=== PATIENT | female | born 1960 | race Caucasian/White ===

== ENCOUNTER 2025-07-22 10:35 | Emergency (ER) | payer BC, SELFPAY ==
[2025-07-22 10:40] VITALS: BP 125/75
[2025-07-22 11:25] VITALS: BP 102/70
--- NOTE | 2025-07-22 11:26 | ED.GENMED ---
History of Present Illness
General
Chief Complaint: Breathing Problem
Time Seen by Provider: 07/22/25 11:26
Nursing documentation reviewed up to this point in time: agreed with
History of Present Illness
History of Present Illness:
64-year-old female presents to the ER for evaluation of cough and congestion since Monday night. Patient shared thanksgiving with a large group. She has not taken on a antibiotics recently. She does not use any inhalers on a daily basis. She
does have a history of lung cancer and is on immunotherapy. She reports poor appetite. No vomiting. She has been feeling generally weak but no syncope.
Past History
Past History
ED Past Medical History: COPD and Hypothyroidism
ED Past Surgical History: Orthopedic (Low back surgery), Tonsilectomy and Other (Breast implants, right toe neuroma removed, parathyroidectomy)
Social History
Tobacco: Smoker
Alcohol: None
Drug: None
Personal: Single
Living: with family
Employment: Employed
Family History
Family History: Other (Noncontributory)
Review of Systems
Review of Systems
Allergies reviewed?: Yes
Phy Exam
Physical Exam
Physical Exam:
Patient is awake, alert, appears in no acute distress, head is NCAT, PERRL, EOMI mucous membranes tacky, conjunctiva pink, heart regular rate and rhythm without murmurs or ectopy, lungs are without increased work of breathing, diffuse wheezing
heard, no JVD, abdomen is soft and nontender on palpation, extremities without edema, GCS is 15
Scores
Heart Failure Risk
Heart Failure Risk Score: Not Applicable
Course
Orders/Labs/Results
Orders:
Orders
07/22/25 11:19
Electrocardiogram (*1) Urgent
Reason for Study: Shortness of Breath
EKG- Treatment ONCE
07/22/25 11:34
0.9% Sodium Chloride 1000 ml [Nss] 1,000 ml IV BOLUS
Albuterol Sulfate [Ventolin Nebules] 10 mg INH R NOW STA
Ipratropium/Albuterol Sulfate [Duoneb] 3 ml INH R NOW STA
CR Chest - 2 Views Urgent
Comment:
Reason For Exam: cough
Pulse Ox/cont/shift [RESP] Stat
Quantity: 1
07/22/25 11:54
Basic Metabolic Panel Urgent
COVID-19 Antigen Urgent
Source: Nasal Swab
Complete Blood Count/With Diff Urgent
Influenza A+B Rapid Molecular Urgent
[facility]SON Source: Nasal Swab
Specimen Description:
07/22/25 14:25
Azithromycin [Zithromax] 500 mg PO NOW STA
Prednisone [Deltasone] 50 mg PO NOW STA
07/22/25 14:37
Albuterol [ProAIR HFA INHALER] 2 puff INH R NOW STA
Abnormal Lab Results
07/22/25
11:54
MCHC 32.9 L g/dL
(33.0-37.0)
RDW 15.0 H %
(11.5-14.5)
Plt Count 63 L 10^3/uL
(130-400)
MPV 10.9 H fL
(7.4-10.4)
Absolute Lymphs (auto) 0.8 L 10^3/uL
(1.2-3.4)
Neutrophils % 80.9 H %
(42.2-75.2)
Lymphocytes % 10.3 L %
(20.5-51.1)
Glucose 100 H mg/dl
(70-99)
07/22/25 11:54
07/22/25 11:54
COVID and flu swab negative. Kidney function preserved. CBC within normal limits
Vital Signs
Initial and Last Documented VS:
Initial Vital Signs
Temp Pulse Resp BP Pulse Ox
97.8 F 105 20 125/75 94
12/02/25 10:40 07/22/25 10:40 07/22/25 10:40 07/22/25 10:40 07/22/25 10:40
Last Documented Vital Signs
Temp Pulse Resp BP Pulse Ox
97.8 F 110 18 117/62 93
07/22/25 10:40 07/22/25 14:02 07/22/25 14:02 07/22/25 14:00 07/22/25 14:00
*Radiology
Radiology exam reviewed: radiology read reviewed (no pneumonia)
*Pulse Oximetry
SaO2: 94
Oxygen Mode of Delivery: Room air
Patient hypoxic: no
*EKG
Interpreted by ED Provider?: Yes (I independently viewed and interpreted 12 EKG showing sinus tachycardia, rate 104, normal axis, normal intervals, this is an otherwise normal tracing, no evidence for acute ischemia, increased rate, otherwise
similar to prior from 07/15/2022)
*Shoder Filler Interpretation
Rate: tachycardiac (I independently viewed and interpreted rhythm strip showing sinus tachycardia, no ectopy)
*Critical Care Note
Total Time (30-74mins, 75-104mins- exclusive of procedures): Not Applicable
Update Note
Update Note:
On reexamination after hour-long breathing treatment, patient reports that she has had no symptomatic improvement. Oxygen saturation is stable. On ambulation, her oxygen saturation stays above 92%. On reexamination she has some scattered rhonchi.
I discussed with her very reassuring workup-no evidence for infiltrate seen on x-ray, negative COVID and flu testing. I discussed with her treatment of bronchitis. We discussed admission versus discharge home, patient is concerned that she has
dogs at home to care for and would like to go home. I discussed with her strict return precautions. She feels comfortable with plan for antibiotics, steroids and inhaler. She is also provided with a work note. She has no questions at the current
time
ED Attending Note
-
Portions of this chart may have been created with voice recognition software.� Occasional wrong word or��sound alike� substitutions may have occurred due to the inherent limitations of voice recognition software.
Discharge Plan
Departure
Patient Disposition: Home (Routine Discharge)
Date of Disposition: 07/22/25
Time of Disposition: 14:32
Patient with high blood pressure during this ER visit?: No
Discharge Problem:
Acute bronchitis
Instructions: Bronchitis in adults - ED (DC)
Prescriptions:
New
azithromycin [Zithromax] 250 mg tablet
250 mg PO DAILY 4 Days Qty: 4 0RF
prednisone 50 mg tablet
50 mg PO DAILY Qty: 4 0RF
albuterol sulfate [Ventolin HFA] 90 mcg/actuation HFA aerosol inhaler
2 inh inhalation Q6H PRN (Reason: shortness of breath or wheezing) Qty: 6.7 0RF
No Action
levothyroxine 50 MCG tablet
50 mcg PO DAILY
pantoprazole [Protonix] 40 mg tablet,delayed release (DR/EC)
40 mg PO DAILY Qty: 30 0RF
Rx Instructions:
Please take 30 minutes prior to eating or drinking anything in the morning.
sucralfate [Carafate] 100 mg/mL suspension
10 ml PO QID Qty: 400 0RF
Referrals:
Osmany Weber MD [Family Provider, Family Practice]
Stand Alone Forms: Return to Work
Interventions
Interventions:
*Risk Screen - Suicide Last Done: 07/22/25 10:40
*General Assessment Last Done: 07/22/25 10:40
*Neglect/Abuse Screening Last Done: 07/22/25 10:40
*ED COVID-19 Vaccine History Last Done: 07/22/25 12:23
*ED Influenza Vaccine History Last Done: 07/22/25 12:23
[facility] Fall Risk Assessment Tool Last Done: 07/22/25 12:23
ED- Cardiac Assessment Last Done: 07/22/25 12:23
ED- Pulmonary Assessment Last Done: 07/22/25 12:23
Discharge Date and Time
Print Language: LITHUANIAN
[2025-07-22] MEDS: VENTOLIN NEBULES 10 MG INH (12:16)
[2025-07-22] MEDS: NSS 1000 IV (12:16)
[2025-07-22] MEDS: DUONEB 3 ML INH (12:16)
[2025-07-22 12:22] LABS: Hematocrit 43.2 % (37.0-47.0); Hemoglobin 14.2 g/dL (12.0-16.0); Mean Corp Hgb Conc. 32.9 g/dL (33.0-37.0); Mean Corpuscular Volume 82.9 fL (81.0-99.0); Nucleated Red Blood Cells % 0 %; Red Cell Dist. Width 15.0 % (11.5-14.5)
[2025-07-22 12:27] LABS: Blood Urea Nitrogen 14 mg/dl (7-17); Calcium 9.4 mg/dl (8.4-10.2); Carbon Dioxide 28 mmol/L (22-30); Chloride 104 mmol/L (98-107); Glucose 100 mg/dl (70-99); Potassium 4.5 mmol/L (3.5-5.1); Sodium 138 mmol/L (135-145); eGFR > 60.00
[2025-07-22 12:33] LABS: COVID-19 Antigen Negative (Negative)
[2025-07-22 12:55] LABS: Platelet Count 63 10^3/uL (130-400)
[2025-07-22 13:26] VITALS: BP 102/55
[2025-07-22 14:00] VITALS: BP 117/62
[2025-07-22] MEDS: ZITHROMAX 500 MG PO (14:33)
[2025-07-22] MEDS: DELTASONE 50 MG PO (14:33)
[2025-07-22 15:37] VITALS: BP 115/71
== END 2025-07-22 15:37 | disposition home or self-care (01) ==
LOC: EMR 10:35
PROVIDERS: EMERGENCY PHYSICIAN Emergency Medicine; FAMILY PHYSICIAN Student in an Organized Health Care Education/Training Program
DX: J20.9 Acute bronchitis, unspecified (principal); J44.0 Chronic obstructive pulmonary disease with (acute) lower respiratory infection; E03.9 Hypothyroidism, unspecified; F17.200 Nicotine dependence, unspecified, uncomplicated; Z85.118 Personal history of other malignant neoplasm of bronchus and lung; Z98.82 Breast implant status; Z11.52 Encounter for screening for COVID-19
CPT/HCPCS: 94640; 96360; 99285; 71046; 80048; 85025; 87502; 87811; 93005; 94667

== ENCOUNTER 2025-07-31 19:14 | Emergency (ER) | payer BC, SELFPAY ==
[2025-07-31 19:16] VITALS: BP 164/81
--- NOTE | 2025-07-31 20:50 | ED.GENMED ---
History of Present Illness
General
Chief Complaint: Eye Problems
Source: patient
Exam Limitations: none
Time Seen by Provider: 07/31/25 20:25
History of Present Illness
History of Present Illness:
Note:
CHIEF COMPLAINT(S)
Ocular migraine with subsequent vision changes.
HISTORY OF PRESENT ILLNESS
The patient is a 64-year-old female with a known history of ocular migraines. She presents with an episode starting around 6 PM today characterized by the typical visual aura associated with her ocular migraines, which resolved in less than 10
minutes. Approximately an hour later, she experienced a 'yellow-white spot' in the right eyes visual field, which then transitioned to a 'blackish, grayish' color before resolving. The patient acknowledges season and weather-related exacerbations
and previously believed the episodes might have been hormonal. She reported no involvement of the left eye and no vision loss such as a descending shade or quadrant loss, which can indicate retinal detachment. The current episode prompted her to
seek medical attention due to the atypical vision changes following her migraine. She describes in the past she had an episode of amaurosis fugax. She states this event was nothing like that.
PAST MEDICAL AND SURGICAL HISTORY
History of lung surgery for cancer.
History of lung cancer
SOCIAL HISTORY
The patient is a smoker, with an unspecified quantity and history of intermittent attempts to quit. She has tried nicotine replacement therapies like patches and gum but has not succeeded in quitting long-term. The conversation acknowledges the
challenge of breaking the routine associated with smoking habits, emphasizing the need for commitment beyond the mere use of cessation aids.
PHYSICAL EXAM
General: Alert, no acute distress.
Skin: Warm, dry.
Head: Normocephalic, atraumatic.
Neck: Supple, trachea midline.
Eye, Ears, Nose, Mouth and Throat: Pupils are equal, round, and reactive to light; no papilledema noted.
Cardiovascular: Normal peripheral perfusion, no edema.
Respiratory: Respirations are non-labored.
Gastrointestinal: Abdomen nondistended.
Back: Normal range of motion, normal alignment.
Musculoskeletal: Normal range of motion, normal strength.
Neurological: Alert and oriented to person, place, time, and situation, no focal neurological deficit observed.
Psychiatric: Cooperative, appropriate mood & affect.
PLAN
The patient needs monitoring for any recurrent or new changes in vision to rule out retinal pathology. Support for smoking cessation will be encouraged, using tools and behavior modification strategies to aid in reducing smoking and quitting.
Further evaluation with eye exam tools, such as magnification, is suggested to more closely inspect for any subtle ocular findings.
DIFFERENTIAL DIAGNOSIS
The Differential Diagnosis includes, in no particular order and is not limited to:
1. Ocular migraine
2. Transient ischemic attack (TIA)
3. Retinal detachment
4. Retinal artery occlusion
5. Retinal vein occlusion
6. Glaucoma
7. Optic neuritis
8. Migraine with aura without headache
9. Amaurosis fugax
10. Vitreous hemorrhage
Disposition:
SUMMARY OF ENCOUNTER
A 64-year-old female with a known history of ocular migraines presented to the emergency department after experiencing an episode with a visual aura followed by the appearance of floaters in her right visual field. The floaters were described as a
'yellow-white blockage,' transitioning to 'blackish, grayish' before resolving. There was no accompanying vision loss and the symptoms only affected her right eye. Given her normal physical exam and lack of any neurological deficits, she was
determined to be safe for discharge. Her symptoms were consistent with her typical ocular migraines, which have been investigated in the past.
DISPOSITION
Discharge.
ASSESSMENT
The patients presentation is most consistent with a recurrent ocular migraine. The absence of vision loss or more severe symptoms reduces suspicion for central retinal artery occlusion, retinal detachment, or cerebrovascular accident (CVA).
PLAN
The patient is advised to monitor for any recurrent or new changes in vision. She will follow up with an drilling field specialist for a detailed retinal exam to rule out any retinal pathology. Moreover, smoking cessation counseling is recommended to support
her overall health.
PATIENT EDUCATION AND COUNSELING
The patient was informed about the benign nature of her current symptoms within the context of her history of ocular migraines. She was counseled on recognizing new or worsening symptoms (such as persistent vision changes or significant visual loss)
that should prompt immediate medical attention.
FOLLOW-UP INSTRUCTIONS
The patient should follow up with her drilling field specialist for a detailed retinal exam.
MEDICAL DECISION MAKING
-Complexity of Data Reviewed: Chronic conditions affecting care include a history of lung cancer and ocular migraines. Differential diagnosis considerations involve ocular migraine, transient ischemic attack (TIA), retinal detachment, retinal artery
occlusion, retinal vein occlusion, glaucoma, optic neuritis, migraine with aura without headache, amaurosis fugax, and vitreous hemorrhage.
-Data:
Category 1
There were no additional tests ordered during this visit. The patients history of work-up for vision issues where ocular migraines were determined is noted.
-Risk:
Consideration of Admission/Observation: Escalation of care, including admission/observation, was considered given the complexity and risk of the patients presenting complaint and exam findings. However, ultimately I feel the patient is safe for
outpatient management with close follow-up. Reasoning: Work-up is reassuring, does not reveal any acute life/organ-threatening processes, patients symptoms are well-controlled upon reevaluation, reexamination is reassuring, vitals are stable,
patient agreeable with discharge, reliable for follow-up.
DIAGNOSIS
Ocular migraine without headache (ICD-10 G43.A1).
Past History
Past History
ED Past Medical History: COPD and Hypothyroidism
ED Past Surgical History: Orthopedic (Low back surgery), Tonsilectomy and Other (Breast implants, right toe neuroma removed, parathyroidectomy)
Social History
Tobacco: Smoker
Alcohol: None
Drug: None
Personal: Single
Living: with family
Employment: Employed
Family History
Family History: Other (Noncontributory)
Phy Exam
Physical Exam
Physical Exam:
.
Course
Vital Signs
Initial and Last Documented VS:
Initial Vital Signs
Temp Pulse Resp BP Pulse Ox
98.2 F 93 16 164/81 99
07/31/25 19:16 07/31/25 19:16 07/31/25 19:16 07/31/25 19:16 07/31/25 19:16
Last Documented Vital Signs
Temp Pulse Resp BP Pulse Ox
98.2 F 93 16 164/81 99
07/31/25 19:16 07/31/25 19:16 07/31/25 19:16 07/31/25 19:16 07/31/25 19:16
*Pulse Oximetry
SaO2: 99
Oxygen Mode of Delivery: Room air
Patient hypoxic: no
*Critical Care Note
Total Time (30-74mins, 75-104mins- exclusive of procedures): Not Applicable
ED Attending Note
-
Portions of this chart may have been created with voice recognition software.� Occasional wrong word or��sound alike� substitutions may have occurred due to the inherent limitations of voice recognition software.
Discharge Plan
Departure
Patient Disposition: Home (Routine Discharge)
Date of Disposition: 07/31/25
Time of Disposition: 20:51
Patient with high blood pressure during this ER visit?: Yes
Discharge Problem:
Floaters in visual field of right eye
Instructions: Floaters in the Eye
Prescriptions:
No Action
levothyroxine 50 MCG tablet
50 mcg PO DAILY
pantoprazole [Protonix] 40 mg tablet,delayed release (DR/EC)
40 mg PO DAILY Qty: 30 0RF
Rx Instructions:
Please take 30 minutes prior to eating or drinking anything in the morning.
sucralfate [Carafate] 100 mg/mL suspension
10 ml PO QID Qty: 400 0RF
azithromycin [Zithromax] 250 mg tablet
250 mg PO DAILY 4 Days Qty: 4 0RF
prednisone 50 mg tablet
50 mg PO DAILY Qty: 4 0RF
albuterol sulfate [Ventolin HFA] 90 mcg/actuation HFA aerosol inhaler
2 inh inhalation Q6H PRN (Reason: shortness of breath or wheezing) Qty: 6.7 0RF
Referrals:
UNKNOWN - PT DOES,NOT KNOW [Family Provider]
Rudy Garner [Provider Group]
Activity Restrictions/Additional Instructions:
Please see ophthalmology in the next 3 to 5 days for follow-up and reevaluation. Return immediately for worsening symptoms, vision loss, headache, weakness of any kind or any other concerns.
Interventions
Interventions:
*Risk Screen - Suicide Last Done: 07/31/25 19:16
*General Assessment Last Done: 07/31/25 19:40
*Neglect/Abuse Screening Last Done: 07/31/25 19:16
*ED COVID-19 Vaccine History Last Done: 07/31/25 19:40
*ED Influenza Vaccine History Last Done: 07/31/25 19:40
[facility] Fall Risk Assessment Tool Last Done: 07/31/25 19:40
Discharge Date and Time
Print Language: TURKISH
== END 2025-07-31 21:19 | disposition home or self-care (01) ==
LOC: EMR 19:14
PROVIDERS: EMERGENCY PHYSICIAN Emergency Medicine; FAMILY PHYSICIAN Student in an Organized Health Care Education/Training Program
DX: H43.391 Other vitreous opacities, right eye (principal); G43.109 Migraine with aura, not intractable, without status migrainosus; J44.9 Chronic obstructive pulmonary disease, unspecified; E03.9 Hypothyroidism, unspecified; F17.200 Nicotine dependence, unspecified, uncomplicated; Z85.118 Personal history of other malignant neoplasm of bronchus and lung
CPT/HCPCS: 99282